=== PATIENT | male | born 1970 | race Caucasian/White ===

== ENCOUNTER 2016-07-05 17:34 | Emergency (ER) | payer SELFPAY ==
[2016-07-05 18:08] VITALS: BP 140/82
--- NOTE | 2016-07-05 18:10 | ER Document Report ---
ED Medical Screen (RME) - General Stated Complaint: BACK PAIN Notes: Patient states he injured his lower back about 2 weeks ago working on a truck. Seen by his primary care physician and treated as a muscle strain. Pt is still having sharp pains in back. Pain is more to the lower right side, but does not radiate down legs. Patient denies bowel or bladder dysfunction. States he does have a history of constipation because he is on hydrocodone. Has had back injuries in the past. I have greeted and performed a rapid initial assessment of this patient. A comprehensive ED assessment and evaluation of the patient, analysis of test results and completion of the medical decision making process will be conducted by additional ED providers. TRAVEL OUTSIDE OF THE [place] IN LAST 30 DAYS: No - Related Data Allergies/Adverse Reactions: No Known Allergies Allergy (Unverified 07/05/16 18:07) Past Medical History - Past Medical History Cardiac Medical History: Reports: Hx Atrial Fibrillation, Hx Hypertension Past Surgical History: Reports: Hx Appendectomy, Hx Bowel Surgery - partial removal large intestine, Hx Cardiac Surgery - open heart for "hole in heart" Physical Exam - Extremities Notes: Pain reproduced with leg raises. Left more than right.
[2016-07-05 19:05] LABS: APPEARANCE,URINE CLEAR; BILIRUBIN,URINE NEGATIVE (NEGATIVE); GLUCOSE, URINE NEGATIVE (NEGATIVE); KETONES,URINE NEGATIVE (NEGATIVE); LEUKOCYTE ESTERASE,URINE NEGATIVE (NEGATIVE); NITRITE,URINE NEGATIVE (NEGATIVE); PROTEIN,URINE NEGATIVE (NEGATIVE); URINE SPECIFIC GRAVITY 1.005; UROBILINOGEN,URINE NEGATIVE mg/dL (<2.0)
== END 2016-07-05 21:30 | disposition left against medical advice (07) ==
LOC: ER 17:34
DX: M54.9 Dorsalgia, unspecified (principal); K59.00 Constipation, unspecified; I48.91 Unspecified atrial fibrillation; I10 Essential (primary) hypertension
CPT/HCPCS: 72110; 81001; 99281

== ENCOUNTER 2016-10-14 12:07 | Emergency (ER) | payer BC ==
--- NOTE | 2016-10-14 12:59 | ER Document Report ---
ED GI/ - General Chief Complaint: Abdominal Pain Stated Complaint: ABDOMINAL PAIN Time Seen by Provider: 10/14/16 12:50 Notes: Patient is a 46-year-old male who presents with 6 weeks of intermittent abdominal cramping and increased loose stools. He was treated for H pylori 5 weeks ago and this cleared. He was started on medications for IBS, but he said this was not helping. He went to his GI appointment today, but the office was closed. He denies nausea, vomiting, blood in stool, chest pain, shortness of breath, fevers, recent travel, recent camping or headache. TRAVEL OUTSIDE OF THE [place] IN LAST 30 DAYS: No - Related Data Allergies/Adverse Reactions: No Known Allergies Allergy (Verified 10/14/16 12:10) Past Medical History - General Information source: Patient - Social History Smoking Status: Current Every Day Smoker Family History: Reviewed & Not Pertinent Patient has suicidal ideation: No Patient has homicidal ideation: No - Past Medical History Cardiac Medical History: Reports: Hx Atrial Fibrillation, Hx Hypertension Renal/ Medical History: Denies: Hx Peritoneal Dialysis Past Surgical History: Reports: Hx Appendectomy, Hx Bowel Surgery - partial removal large intestine, Hx Cardiac Surgery - open heart for "hole in heart" Review of Systems - Review of Systems Notes: REVIEW OF SYSTEMS: CONSTITUTIONAL: -fevers, -chills EENT: -eye pain, -difficulty swallowing, -nasal congestion CARDIOVASCULAR:-chest pain, -syncope. RESPIRATORY: -cough, -SOB GASTROINTESTINAL: +abdominal cramping, - nausea, -vomiting, +diarrhea GENITOURINARY: -dysuria, -hematuria MUSCULOSKELETAL: -back pain, -neck pain SKIN: -rash or skin lesions. HEMATOLOGIC: -easy bruising or bleeding. LYMPHATIC: -swollen, enlarged glands. NEUROLOGICAL: -altered mental status or loss of consciousness, -headache, - neurologic symptoms PSYCHIATRIC: -anxiety, -depression. ALL OTHER SYSTEMS REVIEWED AND NEGATIVE. Physical Exam - Vital signs Vitals: Temp Pulse Resp BP Pulse Ox 98.4 F 106 H 20 145/83 H 97 10/14/16 12:10 10/14/16 12:10 10/14/16 12:10 10/14/16 12:10 10/14/16 12:10 - Notes Notes: PHYSICAL EXAMINATION: GENERAL: Well-appearing, well-nourished and in no acute distress. HEAD: Atraumatic, normocephalic. EYES: Pupils equal round and reactive to light, extraocular movements intact, sclera anicteric, conjunctiva are normal. ENT: nares patent, oropharynx clear without exudates. Moist mucous membranes. NECK: Normal range of motion, supple without lymphadenopathy LUNGS: Breath sounds clear to auscultation bilaterally and equal. No wheezes rales or rhonchi. HEART: Mild tachycardia ABDOMEN: Soft, nontender, normoactive bowel sounds. No guarding, no rebound. No masses appreciated. EXTREMITIES: Normal range of motion, no pitting or edema. No cyanosis. NEUROLOGICAL: Cranial nerves grossly intact. Normal speech, normal gait. Normal sensory and motor exams. PSYCH: Anxious SKIN: Warm, Dry, normal turgor, no rashes or lesions noted. Course - Re-evaluation Re-evalutation: Patient's abdomen is soft and completely nontender. Patient unable to provide stool sample while in the emergency room. Labs are unremarkable other than a slightly decreased bicarb, most likely from the diarrhea. Also with mild tachycardia, but he says this is from his anxiety. No abdominal tenderness. Instructed him to call GI for another appointment to reschedule. Told him to continue to stay hydrated. Given return precautions and he understands. - Vital Signs Vital signs: Temp Pulse Resp BP Pulse Ox 98.4 F 106 H 20 145/83 H 97 10/14/16 12:10 10/14/16 12:10 10/14/16 12:10 10/14/16 12:10 10/14/16 12:10 - Laboratory Result Diagrams: 10/14/16 13:06 10/14/16 13:06 Laboratory results interpreted by me: 10/14/16 10/14/16 13:06 13:06 RBC 4.00 L MCV 104 H MCH 35.2 H RDW 14.8 H Carbon Dioxide 21 L Glucose 114 H AST 80 H ALT 75 H Discharge - Discharge Clinical Impression: Abdominal cramping, Loose stools Condition: Stable Disposition: HOME, SELF-CARE Additional Instructions: DIARRHEA, NON-SPECIFIC: Diarrhea means frequent, watery stools. There are many causes. Any problem that keeps the intestinal tract from absorbing water from the stool can lead to diarrhea. A sudden new diarrhea problem is usually caused by a virus, food sensitivity, toxic bacteria, or drugs. In this case, we expect the problem to go away soon. Testing is done only if you seem seriously ill from the diarrhea. If you have chronic diarrhea, or diarrhea that keeps coming back, we need to find out why. Chronic diarrhea can be due to inflammation of the bowels such as Crohn's disease or ulcerative colitis, food sensitivity such as intolerance to lactose or wheat protein, irritable bowel syndrome, and other problems. If your diarrhea is a significant problem but it's not clear why you have it, we' ll refer you to a specialist for further testing. During an episode of diarrhea, drink small amounts (two to six ounces) of clear liquids (soft drinks, sport drinks, herb teas, broth, etc). Take fluids frequently to prevent dehydration. It's usually not a problem to take mild anti- diarrhea medication such as Kaopectate or Pepto-Bismol. As the diarrhea eases, advance to small amounts of bland food (mashed potato, toast) for 24 hours. Call the physician if blood appears in your vomit or stool, if vomiting lasts longer than 24 hours, if the abdominal pain worsens or becomes localized to one area, if you develop high fever, or if you become lightheaded and weak. PRESCRIBED ANTIDIARRHEAL MEDICATION: Your doctor has prescribed antidiarrhea medication for you. While the usual treatment for diarrhea is a clear liquid diet to rest the bowels, an antidiarrheal medicine may allow you to be more active and comfortable while you recover. This medication can make you drowsy. Do not drive or operate machinery while under its influence. Do not combine with alcohol. Prescription antidiarrhea medicine can cause dry mouth. Occasionally, it can make you unable to pass your urine. Do not exceed the prescribed dosage. Severe abdominal pains, lightheadedness, bloody stool, or fever indicate that your disease is worsening. If these occur, stop the medication and see your doctor at once. FOLLOW-UP CARE: If you have been referred to a physician for follow-up care, call the physician s office for an appointment as you were instructed or within the next two days. If you experience worsening or a significant change in your symptoms, notify the physician immediately or return to the Emergency Department at any time for re-evaluation. Forms: Return to Work Referrals: DOMINIQUE LUQUE MD [ACTIVE STAFF] - Follow up as needed
[2016-10-14 13:16] LABS: ABSOLUTE LYMPHOCYTES (AUTO) 2.3 10^3/uL (0.5-4.7); ABSOLUTE MONOCYTES (AUTO) 0.7 10^3/uL (0.1-1.4); ABSOLUTE NEUT (AUTO) 3.3 10^3/uL (1.7-8.2); BASOPHILS % (AUTO) 0.5 % (0-2); EOSINOPHILS % (AUTO) 0.3 % (0-6); HEMATOCRIT 41.6 % (37.9-51.0); HEMOGLOBIN 14.1 g/dL (13.5-17.0); HGB HCT DIFFERENCE 0.7; MEAN CORPUSCULAR HEMOGLOBIN 35.2 pg (27.0-33.4); MEAN CORPUSCULAR HGB CONC 33.8 g/dL (32.0-36.0); MEAN CORPUSCULAR VOLUME 104 fl (80-97); MONOCYTES % (AUTO) 11.1 % (3-13); RED CELL DISTRIBUTION WIDTH 14.8 % (11.5-14.0); SEGMENTED NEUTROPHILS % (AUTO) 52.1 % (42-78); WHITE BLOOD COUNT 6.4 10^3/uL (4.0-10.5)
[2016-10-14 13:32] LABS: ALANINE AMINOTRANSFERASE 75 U/L (21-72); ALBUMIN 3.9 g/dL (3.5-5.0); ALKALINE PHOSPHATASE 117 U/L (38-126); ANION GAP 13 (5-19); ASPARTATE AMINO TRANSFERASE 80 U/L (17-59); BILIRUBIN,DIRECT 0.4 mg/dL (0.0-0.4); BILIRUBIN,TOTAL 0.4 mg/dL (0.2-1.3); BLOOD UREA NITROGEN 8 mg/dL (7-20); CALCIUM 8.5 mg/dL (8.4-10.2); CARBON DIOXIDE 21 mmol/L (22-30); CHLORIDE 104 mmol/L (98-107); CREATININE RESULT 0.84 mg/dL (0.52-1.25); GLUCOSE 114 mg/dL (75-110); POTASSIUM 3.8 mmol/L (3.6-5.0); SODIUM 138.2 mmol/L (137-145)
[2016-10-14 13:48] LABS: LIPASE 271.5 U/L (23-300)
[2016-10-14 14:28] VITALS: BP 120/83
== END 2016-10-14 14:30 | disposition home or self-care (01) ==
LOC: ER 12:07
DX: R10.9 Unspecified abdominal pain (principal); R19.7 Diarrhea, unspecified; F17.200 Nicotine dependence, unspecified, uncomplicated; I48.91 Unspecified atrial fibrillation; I10 Essential (primary) hypertension
CPT/HCPCS: 36415; 80053; 83690; 85025; 99284

== ENCOUNTER 2017-07-09 17:24 | Emergency (ER) | payer BC ==
[2017-07-09] MEDS ORDERED: NORMAL SALINE 1000 ML 1,000 ML IV ONE ×2 (18:10→20:26)
[2017-07-09] MEDS ORDERED: LORAZEPAM INJ 2 MG/1 ML VIAL IV ONE (18:10)
--- NOTE | 2017-07-09 18:11 | ER Document Report ---
ED Medical Screen (RME) - General Chief Complaint: Alcohol Withdrawl Stated Complaint: ETOH USE Time Seen by Provider: 07/09/17 18:09 Mode of Arrival: Ambulatory Information source: Patient Notes: Patient states that he normally drinks a sixpack of beer per day. He denies drugs and he also denies hard liquor usage. He states he does smoke cigarettes. He states over the last several days has been trying to stop drinking alcohol. He states he had a seizure yesterday. He states he is feeling very depressed and did not want to come to the hospital. He states due to the urging of family he did come today. He states he did drink this morning 1-1/2 beers. He states he has been feeling very depressed and suicidal but does not have a plan. He denies any hallucinations. TRAVEL OUTSIDE OF THE [place] IN LAST 30 DAYS: No - Related Data Allergies/Adverse Reactions: No Known Allergies Allergy (Verified 07/09/17 17:58) Past Medical History - Social History Frequency of alcohol use: Heavy Drug Abuse: None - Past Medical History Cardiac Medical History: Reports: Hx Atrial Fibrillation, Hx Hypertension Renal/ Medical History: Denies: Hx Peritoneal Dialysis Past Surgical History: Reports: Hx Appendectomy, Hx Bowel Surgery - partial removal large intestine, Hx Cardiac Surgery - open heart for "hole in heart" - Immunizations Hx Diphtheria, Pertussis, Tetanus Vaccination: Yes Physical Exam - Vital signs Vitals: Temp Pulse Resp BP Pulse Ox 98.6 F 115 H 14 138/82 H 96 07/09/17 17:41 07/09/17 17:41 07/09/17 17:41 07/09/17 17:41 07/09/17 17:41 Course - Vital Signs Vital signs: Temp Pulse Resp BP Pulse Ox 98.6 F 115 H 14 138/82 H 96 07/09/17 17:41 07/09/17 17:41 07/09/17 17:41 07/09/17 17:41 07/09/17 17:41 Doctor's Discharge - Discharge Referrals: URIAH GOLDEN PA [Primary Care Provider] - Follow up as needed
[2017-07-09 18:51] LABS: ABSOLUTE BASOPHILS # (AUTO) 0.1 10^3/uL (0.0-0.2); ABSOLUTE LYMPHOCYTES (AUTO) 2.7 10^3/uL (0.5-4.7); ABSOLUTE MONOCYTES (AUTO) 0.8 10^3/uL (0.1-1.4); ABSOLUTE NEUT (AUTO) 6.3 10^3/uL (1.7-8.2); BASOPHILS % (AUTO) 0.5 % (0-2); EOSINOPHILS % (AUTO) 0.2 % (0-6); HEMATOCRIT 42.4 % (37.9-51.0); HEMOGLOBIN 14.4 g/dL (13.5-17.0); LYMPHOCYTES % (AUTO) 27.2 % (13-45); MEAN CORPUSCULAR HEMOGLOBIN 36.8 pg (27.0-33.4); MEAN CORPUSCULAR VOLUME 108 fl (80-97); MONOCYTES % (AUTO) 8.2 % (3-13); PLATELET COUNT 334 10^3/uL (150-450); RED BLOOD COUNT 3.92 10^6/uL (4.35-5.55); RED CELL DISTRIBUTION WIDTH 17.5 % (11.5-14.0); SEGMENTED NEUTROPHILS % (AUTO) 63.9 % (42-78); TOTAL CELLS COUNTED % (AUTO) 100 %; WHITE BLOOD COUNT 9.9 10^3/uL (4.0-10.5)
[2017-07-09 18:54] LABS: ALANINE AMINOTRANSFERASE 66 U/L (21-72); ALBUMIN 4.3 g/dL (3.5-5.0); ALKALINE PHOSPHATASE 141 U/L (38-126); ANION GAP 13 (5-19); ASPARTATE AMINO TRANSFERASE 184 U/L (17-59); BILIRUBIN,DIRECT 0.3 mg/dL (0.0-0.4); BILIRUBIN,TOTAL 0.3 mg/dL (0.2-1.3); BLOOD UREA NITROGEN 10 mg/dL (7-20); CALCIUM 9.6 mg/dL (8.4-10.2); CARBON DIOXIDE 22 mmol/L (22-30); CHLORIDE 109 mmol/L (98-107); GLUCOSE 119 mg/dL (75-110); POTASSIUM 4.7 mmol/L (3.6-5.0); SODIUM 143.9 mmol/L (137-145); TOTAL PROTEIN 7.3 g/dL (6.3-8.2)
[2017-07-09 19:03] LABS: ALCOHOL 325 mg/dL (NONE DETECTED)
[2017-07-09 19:18] LABS: URINE AMPHETAMINES SCREEN NEGATIVE; URINE BARBITURATES SCREEN NEGATIVE; URINE BENZODIAZEPINES SCREEN NEGATIVE; URINE COCAINE SCREEN NEGATIVE; URINE MARIJUANA (THC) SCREEN NEGATIVE; URINE METHADONE SCREEN NEGATIVE; URINE PHENCYCLIDINE SCREEN NEGATIVE
[2017-07-09 19:40] LABS: APPEARANCE,URINE CLEAR; BILIRUBIN,URINE NEGATIVE (NEGATIVE); COLOR,URINE YELLOW; GLUCOSE, URINE NEGATIVE (NEGATIVE); KETONES,URINE NEGATIVE (NEGATIVE); LEUKOCYTE ESTERASE,URINE NEGATIVE (NEGATIVE); NITRITE,URINE NEGATIVE (NEGATIVE); PROTEIN,URINE NEGATIVE (NEGATIVE); URINE SPECIFIC GRAVITY 1.029; UROBILINOGEN,URINE NEGATIVE mg/dL (<2.0)
--- NOTE | 2017-07-09 21:08 | ER Document Report ---
ED General - General Mode of Arrival: Ambulatory Information source: Patient TRAVEL OUTSIDE OF THE [place] IN LAST 30 DAYS: No <ELLEN PEREZ - Last Filed: 07/09/17 23:50> <MYRIAM LALA - Last Filed: 07/10/17 09:36> <VERONICA RANDOLPH - Last Filed: 07/14/17 06:54> - General Chief Complaint: Alcohol Withdrawl Stated Complaint: ETOH USE Time Seen by Provider: 07/09/17 18:09 Notes: Patient is a 47 year old male with a history of alcohol abuse and Afib presents to the emergency department complaining of depression and suicidal ideation. Patient states that he had approximately 1-1/2 beers today and is attempting to stop drinking alcohol at the urgency of his family. Patient states approximately 1 month ago he had a seizure due to alcohol withdrawals and is concerned of withdrawal symptoms while here in the hospital. At bedside patient denies any suicidal ideation, suicidal plan or homicidal ideation. Patient states he was previously in Rehab in [place]. Patient currently takes Eliquis and Metoprolol. (ELLEN PEREZ) - Related Data Allergies/Adverse Reactions: No Known Allergies Allergy (Verified 07/09/17 17:58) Past Medical History - General Information source: Patient - Social History Smoking Status: Current Every Day Smoker Frequency of alcohol use: Heavy Drug Abuse: None Family History: Reviewed & Not Pertinent Patient has suicidal ideation: Yes Patient has homicidal ideation: No - Past Medical History Cardiac Medical History: Reports: Hx Atrial Fibrillation, Hx Hypertension Renal/ Medical History: Denies: Hx Peritoneal Dialysis Past Surgical History: Reports: Hx Appendectomy, Hx Bowel Surgery - partial removal large intestine, Hx Cardiac Surgery - open heart for "hole in heart" - Immunizations Hx Diphtheria, Pertussis, Tetanus Vaccination: Yes <ELLEN PEREZ - Last Filed: 07/09/17 23:50> Review of Systems - Review of Systems Constitutional: No symptoms reported EENT: No symptoms reported Cardiovascular: No symptoms reported Respiratory: No symptoms reported Gastrointestinal: No symptoms reported Genitourinary: No symptoms reported Male Genitourinary: No symptoms reported Musculoskeletal: No symptoms reported Skin: No symptoms reported Hematologic/Lymphatic: No symptoms reported Neurological/Psychological: See HPI -: Yes All other systems reviewed and negative <ELLEN PEREZ - Last Filed: 07/09/17 23:50> Physical Exam <ELLEN PEREZ - Last Filed: 07/09/17 23:50> <MYRIAM LALA - Last Filed: 07/10/17 09:36> <VERONICA RANDOLPH - Last Filed: 07/14/17 06:54> - Vital signs Vitals: Temp Pulse Resp BP Pulse Ox 98.6 F 115 H 14 138/82 H 96 07/09/17 17:41 07/09/17 17:41 07/09/17 17:41 07/09/17 17:41 07/09/17 17:41 - Notes Notes: GENERAL: Alert, interacts well, pleasant. No acute distress. HEAD: Normocephalic, atraumatic. EYES: Pupils equal, round, and reactive to light. Extraocular movements intact. ENT: Oral mucosa moist, tongue midline. NECK: Full range of motion. Supple. Trachea midline. LUNGS: Clear to auscultation bilaterally, no wheezes, rales, or rhonchi. No respiratory distress. HEART: Regular rate and rhythm. No murmurs, gallops, or rubs. ABDOMEN: Soft, non-tender. Non-distended. Bowel sounds present in all 4 quadrants. EXTREMITIES: Moves all 4 extremities spontaneously. NEUROLOGICAL: Alert and oriented x3. Normal speech. PSYCH: Normal affect, normal mood. SKIN: Warm, dry, normal turgor. No rashes or lesions noted. (ELLEN PEREZ) Course - Laboratory Result Diagrams: 07/09/17 18:26 07/09/17 18:26 <ELLEN PEREZ - Last Filed: 07/09/17 23:50> - Laboratory Result Diagrams: 07/09/17 18:26 07/09/17 18:26 <MYRIAM LALA - Last Filed: 07/10/17 09:36> - Laboratory Result Diagrams: 07/09/17 18:26 07/09/17 18:26 <VERONICA RANDOLPH - Last Filed: 07/14/17 06:54> - Re-evaluation Re-evalutation: 07/10/17 09:34 Patient was signed out to me by Dr. randolph. (MYRIAM LALA) 07/09/17 23:00 Patient requesting alcohol detoxification assistance. Will be held overnight until psychiatric services can evaluate patient. Patient alert oriented very pleasant during history and physical. (VERONICA RANDOLPH) - Vital Signs Vital signs: Temp Pulse Resp BP Pulse Ox 98.2 F 115 H 16 155/97 H 96 07/10/17 07:00 07/09/17 17:41 07/10/17 08:01 07/10/17 09:00 07/10/17 09:01 - Laboratory Laboratory results interpreted by me: 07/09/17 07/09/17 07/09/17 18:26 18:26 18:26 RBC 3.92 L MCV 108 H MCH 36.8 H RDW 17.5 H Chloride 109 H Glucose 119 H AST 184 H Alkaline Phosphatase 141 H Acetaminophen < 10 L Serum Alcohol 325 H* Discharge <ELLEN PEREZ - Last Filed: 07/09/17 23:50> <MYRIAM LALA - Last Filed: 07/10/17 09:36> <VERONICA RANDOLPH - Last Filed: 07/14/17 06:54> - Discharge Clinical Impression: Alcohol withdrawal Qualifiers: Complication of substance-induced condition: with unspecified complication Qualified Code(s): F10.239 - Alcohol dependence with withdrawal, unspecified Condition: Good Disposition: HOME, SELF-CARE Instructions: Alcohol Withdrawl (OM) Referrals: URIAH GOLDEN PA [Primary Care Provider] - Follow up as needed Scribe Attestation: 07/14/17 06:54 I personally performed the services described in the documentation, reviewed and edited the documentation which was dictated to the scribe in my presence, and it accurately records my words and actions. (VERONICA RANDOLPH) Scribe Documentation - Scribe Written by Scottibgeorgiana:: Dontae Jackman, 07/09/2017 21:09 acting as scribe for :: Saúl <ELLEN PEREZ - Last Filed: 07/09/17 23:50>
[2017-07-10] MEDS ORDERED: LORAZEPAM INJ 2 MG/1 ML VIAL IV PRN (00:06)
[2017-07-10 10:07] VITALS: BP 155/97
== END 2017-07-10 10:07 | disposition home or self-care (01) ==
LOC: ER 17:24
DX: F10.239 Alcohol dependence with withdrawal, unspecified (principal); I48.91 Unspecified atrial fibrillation; F32.9 Major depressive disorder, single episode, unspecified; F17.200 Nicotine dependence, unspecified, uncomplicated; I10 Essential (primary) hypertension
CPT/HCPCS: 96376; 99285; 96361; 96374; 36415; 80307 ×3; 85025; 80053; 81001; J2060 ×2; J7030

== ENCOUNTER 2019-01-02 14:04 | Emergency (ER) | payer SELFPAY ==
[2019-01-02] MEDS ORDERED: ASPIRIN 81 MG TABLET, CHEWABLE PO ONE (14:09)
[2019-01-02] MEDS ORDERED: ONDANSETRON 4 MG TAB.RAPDIS PO ONE (14:10)
--- NOTE | 2019-01-02 14:11 | ER Document Report ---
ED Medical Screen (RME) - General Stated Complaint: CHEST PAIN/DIFFICULTY BREATHING Time Seen by Provider: 01/02/19 14:09 Primary Care Provider: URIAH LEONARDO PA-C [Primary Care Provider] - Follow up as needed Mode of Arrival: Ambulatory Information source: Patient Notes: This 48-year-old male presents emergency department with chest pain shortness of breath. Reports history of atrial fib. Reports symptoms for the past 24 hours. Reports the pain comes and goes when it comes he feels nauseated and sweaty. Denies radiating pain. Patient does take Eliquis. Patient is very anxious. I have greeted and performed a rapid initial assessment of this patient. A comprehensive ED assessment and evaluation of the patient, analysis of test results and completion of the medical decision making process will be conducted by additional ED providers. Dictation of this chart was performed using voice recognition software; therefore, there may be some unintended grammatical errors. TRAVEL OUTSIDE OF THE [place] IN LAST 30 DAYS: No - Related Data Allergies/Adverse Reactions: No Known Allergies Allergy (Verified 07/09/17 17:58) Past Medical History - Past Medical History Cardiac Medical History: Reports: Hx Atrial Fibrillation, Hx Hypertension Renal/ Medical History: Denies: Hx Peritoneal Dialysis Past Surgical History: Reports: Hx Appendectomy, Hx Bowel Surgery - partial removal large intestine, Hx Cardiac Surgery - open heart for "hole in heart" - Immunizations Hx Diphtheria, Pertussis, Tetanus Vaccination: Yes Physical Exam - Vital signs Vitals: Temp Pulse Resp BP Pulse Ox 97.6 F 99 18 138/78 H 97 01/02/19 14:07 01/02/19 14:07 01/02/19 14:07 01/02/19 14:07 01/02/19 14:07 Course - Vital Signs Vital signs: Temp Pulse Resp BP Pulse Ox 97.6 F 99 18 138/78 H 97 01/02/19 14:07 01/02/19 14:07 01/02/19 14:07 01/02/19 14:07 01/02/19 14:07 Doctor's Discharge - Discharge Referrals: URIAH LEONARDO PA-C [Primary Care Provider] - Follow up as needed
[2019-01-02 15:09] LABS: ABSOLUTE LYMPHOCYTES (AUTO) 2.8 10^3/uL (0.5-4.7); BASOPHILS % (AUTO) 0.4 % (0-2); EOSINOPHILS % (AUTO) 0.2 % (0-6); HEMATOCRIT 45.3 % (37.9-51.0); HEMOGLOBIN 15.7 g/dL (13.5-17.0); LYMPHOCYTES % (AUTO) 28.4 % (13-45); MEAN CORPUSCULAR HGB CONC 34.6 g/dL (32.0-36.0); MEAN CORPUSCULAR VOLUME 95 fl (80-97); MONOCYTES % (AUTO) 9.8 % (3-13); PLATELET COUNT 250 10^3/uL (150-450); RED BLOOD COUNT 4.76 10^6/uL (4.35-5.55); RED CELL DISTRIBUTION WIDTH 15.8 % (11.5-14.0); SEGMENTED NEUTROPHILS % (AUTO) 61.2 % (42-78); TOTAL CELLS COUNTED % (AUTO) 100 %; WHITE BLOOD COUNT 9.8 10^3/uL (4.0-10.5)
[2019-01-02 15:33] LABS: ALBUMIN 4.1 g/dL (3.5-5.0); ALKALINE PHOSPHATASE 104 U/L (38-126); ANION GAP 14 (5-19); ASPARTATE AMINO TRANSFERASE 147 U/L (17-59); BILIRUBIN,DIRECT 0.1 mg/dL (0.0-0.4); BILIRUBIN,TOTAL 0.8 mg/dL (0.2-1.3); BLOOD UREA NITROGEN 15 mg/dL (7-20); CARBON DIOXIDE 22 mmol/L (22-30); CHLORIDE 103 mmol/L (98-107); CREATINE KINASE 83 U/L (55-170); GLUCOSE 103 mg/dL (75-110); TOTAL PROTEIN 6.8 g/dL (6.3-8.2)
[2019-01-02] MEDS ORDERED: NITROGLYCERIN 0.4 MG/TAB 25 TAB/BOTTLE SL PRN (15:40)
[2019-01-02] MEDS ORDERED: LORAZEPAM 0.5 MG TABLET PO ONE (15:40)
--- NOTE | 2019-01-02 15:43 | ER Document Report ---
ED General - General Chief Complaint: Chest Pain Stated Complaint: CHEST PAIN/DIFFICULTY BREATHING Time Seen by Provider: 01/02/19 14:09 Primary Care Provider: URIAH LEONARDO PA-C [NO LOCAL MD] - Follow up as needed Mode of Arrival: Ambulatory Notes: 48-year-old male presents emergency department complaining of sharp stabbing left-sided chest pain and a sensation of heaviness in his chest that makes him short of breath for the past few days. Patient states that it is a fairly constant sharp stabbing pain that will be there for hours and then resolve and then it will come back. It does worsen with standing and walking around. When laying down and is fairly constant and unchanging. Patient does state that he recently started drinking again a few days ago after 9 months of sobriety. Denies any history of ischemic heart disease in himself or his family. Does have a history of atrial fibrillation which is managed with Eliquis and metoprolol. TRAVEL OUTSIDE OF THE [place] IN LAST 30 DAYS: No - Related Data Allergies/Adverse Reactions: No Known Allergies Allergy (Verified 07/09/17 17:58) Past Medical History - General Information source: Patient - Social History Smoking Status: Current Every Day Smoker Frequency of alcohol use: Heavy - Drinking again daily after 9 months of sobriety. Drug Abuse: None Family History: Reviewed & Not Pertinent Patient has suicidal ideation: No Patient has homicidal ideation: No - Past Medical History Cardiac Medical History: Reports: Hx Atrial Fibrillation, Hx Hypertension Renal/ Medical History: Denies: Hx Peritoneal Dialysis Past Surgical History: Reports: Hx Appendectomy, Hx Bowel Surgery - partial removal large intestine, Hx Cardiac Surgery - open heart for "hole in heart" - Immunizations Hx Diphtheria, Pertussis, Tetanus Vaccination: Yes Review of Systems - Review of Systems Constitutional: No symptoms reported Cardiovascular: See HPI Respiratory: See HPI -: Yes All other systems reviewed and negative Physical Exam - Vital signs Vitals: Temp Pulse Resp BP Pulse Ox 97.6 F 99 18 138/78 H 97 01/02/19 14:07 01/02/19 14:07 01/02/19 14:07 01/02/19 14:07 01/02/19 14:07 Interpretation: Normal - Notes Notes: GENERAL: Alert, interacts well. No acute distress. HEAD: Normocephalic, atraumatic EYES: Pupils equal, round and reactive to light, extraocular movements intact. ENT: Oral mucosa moist, tongue midline. NECK: Full range of motion, supple, trachea midline. LUNGS: Clear to auscultation bilaterally, no wheezes, rales or rhonchi, no respiratory distress. No tenderness to palpation across the chest. HEART: Regular rate and rhythm, no murmurs, gallops, rubs. ABDOMEN: Soft, epigastric tenderness to palpation, nondistended, bowel sounds present in all 4 quadrants. EXTREMITIES: Moves all 4 extremities spontaneously, no edema, radial and dorsalis pedis pulses 2/4 bilaterally. No cyanosis. NEUROLOGICAL: Alert and oriented x3, normal speech, biceps and patellar DTRs 2+ bilaterally. PSYCH: Normal mood, normal affect. SKIN: Warm, Dry, normal turgor, no rashes or lesions noted. No lesions to chest. Course - Re-evaluation Re-evalutation: 01/02/19 20:54 CBC unremarkable, CMP unremarkable, only slightly elevated AST consistent with recent increase in drinking, lipase normal, troponin negative x2, serum alcohol was elevated 238. No obvious intoxication. Chest x-ray shows no acute process. Patient's pain is not really consistent with ischemic cardiac disease, her heart score is 3. I did discuss with the patient that this sharp stabbing pain associated with some epigastric abdominal pain may be more related to gastritis particularly with the fact that he is recently started drinking again. Recommend starting antacids, quitting drinking and following up with cardiology as an outpatient for possible stress test anyway. Patient is agreeable to this plan. - Vital Signs Vital signs: Temp Pulse Resp BP Pulse Ox 98.5 F 99 12 126/85 H 98 01/02/19 18:01 01/02/19 14:07 01/02/19 18:01 01/02/19 18:01 01/02/19 18:01 - Laboratory Result Diagrams: 01/02/19 14:56 01/02/19 14:56 Laboratory results interpreted by me: 01/02/19 01/02/19 14:56 14:56 RDW 15.8 H AST 147 H - EKG Interpretation by Me Additional EKG results interpreted by me: 01/02/19 15:43 EKG shows sinus rhythm rate 97, slight right axis deviation, normal intervals, no ST segment elevations or depressions, there are T wave inversions noted in aVL, V2 and V3, no ST segment elevations or depressions per my interpretation. Discharge - Discharge Clinical Impression: Left-sided chest pain, Epigastric abdominal pain Condition: Stable Disposition: HOME, SELF-CARE Additional Instructions: Chest Pain of Unclear Cause The exact cause of your chest pain isn't clear. Fortunately, there is no evidence of a dangerous medical condition. Further testing may be required to find the source of the pain. Most often, we find that this pain is coming from the chest wall -- the muscles or rib joints in the chest. But chest pain can come from the lung and lung lining, the esophagus, the heart valves or heart lining, and even the stomach or gallbladder. Rest. Eat lightly until the pain is gone. We may prescribe medicine for pain and inflammation. You should call the physician immediately if the pain radiates to the shoulder, jaw or arms; if you start to run a fever or develop a cough; or if you develop shortness of breath, or other new or alarming symptoms. I think this may be coming from irritation of your stomach. This is called gastritis. Please take the antacid of your choice [id number] such as Pepcid or Zantac every day for the next 2 weeks. 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 I have included Dr. Leon's discharge information. He may wish to perform a stress test to make absolutely certain this is not coming from your heart. Referrals: URIAH LEONARDO PA-C [NO LOCAL MD] - Follow up as needed ROSANNE LEON MD [ACTIVE STAFF] - Follow up as needed
[2019-01-02 15:44] LABS: CREATINE KINASE MB 0.94 ng/mL (<4.55)
[2019-01-02 15:46] LABS: TROPONIN I < 0.012 ng/mL
--- NOTE | 2019-01-02 16:09 | RADIOLOGY REPORT (SQ) ---
EXAM DESCRIPTION: CHEST SINGLE VIEW COMPLETED DATE/TIME: 01/02/2019 3:57 pm REASON FOR STUDY: cp COMPARISON: 04/05/2008 TECHNIQUE: Single frontal radiographic view of the chest acquired. NUMBER OF VIEWS: One view. LIMITATIONS: None. FINDINGS: LUNGS AND PLEURA: No pneumothorax. No consolidation or pleural effusion. MEDIASTINUM AND HILAR STRUCTURES: Stable. HEART AND VASCULAR STRUCTURES: Stable. BONES: No acute findings. HARDWARE: Sternotomy. OTHER: No other significant finding. IMPRESSION: NO ACUTE FINDINGS. TECHNICAL DOCUMENTATION: JOB ID: [id number] [place]-72 2010 [employer]- All Rights Reserved Reading location - IP/workstation name: [email or web address]
[2019-01-02 21:19] VITALS: BP 121/61
--- NOTE | 2019-01-02 22:15 | EKG REPORT ---
SEVERITY:- ABNORMAL ECG - SINUS RHYTHM LEFT ATRIAL ABNORMALITY BORDERLINE RIGHT AXIS DEVIATION BORDERLINE INFERIOR Q WAVES NONSPECIFIC T ABNORMALITIES, ANTERIOR LEADS : Confirmed by: Rony Magana MD 02-Jan-2019 22:14:05
== END 2019-01-02 21:19 | disposition home or self-care (01) ==
LOC: ER 14:04
DX: R07.9 Chest pain, unspecified (principal); R06.02 Shortness of breath; R10.13 Epigastric pain; R10.816 Epigastric abdominal tenderness; R74.0 Nonspecific elevation of levels of transaminase and lactic acid dehydrogenase [LDH]; F17.200 Nicotine dependence, unspecified, uncomplicated; I10 Essential (primary) hypertension; I48.91 Unspecified atrial fibrillation; Z79.02 Long term (current) use of antithrombotics/antiplatelets; Z79.899 Other long term (current) drug therapy
CPT/HCPCS: 93005; 36415; 82553; 80307; 82550; 83690; 85025; 80053; 84484; 71045; 93010; S0119; 99285

== ENCOUNTER 2019-05-09 11:39 | Emergency (ER) | payer OTHER, BC ==
[2019-05-09 12:32] VITALS: BP 154/85
[2019-05-09] MEDS ORDERED: LIDOCAINE 5% (700 MG) TRANSDERMAL ADH..PATCH TP ONE (13:22)
--- NOTE | 2019-05-09 13:25 | ER Document Report ---
HPI - HPI Patient complains to provider of: LOW BACK PAIN Time Seen by Provider: 05/09/19 13:14 Onset: Other Quality of pain: Achy Pain Level: 5 Context: 48-year-old male presents emergency department with complaints of right-sided low back pain for the past month. 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 He reports he has been to 2 other providers that of treated with ibuprofen muscle relaxers but he still hurting. He also reports he still working and lifting lumber. He reports he cannot take time off. He reports he is eating drinking voiding bowel movement is normal. He denies urinary bowel incontinence or retention. Denies numbness or tingling. Denies history of IV drug use or steroid use. Denies other symptoms such as pain with void fever vomiting diarrhea. Associated Symptoms: None Exacerbated by: Movement Relieved by: Denies Similar symptoms previously: Yes Recently seen / treated by doctor: Yes Past Medical History - General Information source: Patient - Social History Smoking Status: Current Every Day Smoker Chew tobacco use (# tins/day): No Frequency of alcohol use: None Drug Abuse: None Occupation: [employer] Family History: Reviewed & Not Pertinent Patient has suicidal ideation: No Patient has homicidal ideation: No - Past Medical History Cardiac Medical History: Reports: Hx Atrial Fibrillation, Hx Hypertension Renal/ Medical History: Denies: Hx Peritoneal Dialysis Past Surgical History: Reports: Hx Appendectomy, Hx Bowel Surgery - partial removal large intestine, Hx Cardiac Surgery - open heart for "hole in heart" - Immunizations Hx Diphtheria, Pertussis, Tetanus Vaccination: Yes Vertical Provider Document - CONSTITUTIONAL Agree With Documented VS: Yes Exam Limitations: No Limitations General Appearance: WD/WN, No Apparent Distress - INFECTION CONTROL TRAVEL OUTSIDE OF THE [place] IN LAST 30 DAYS: No - HEENT HEENT: Atraumatic, Normocephalic - NECK Neck: Normal Inspection, Supple. negative: Lymphadenopathy-Left, Lymphadenopathy-Right - RESPIRATORY Respiratory: Breath Sounds Normal, No Respiratory Distress - CARDIOVASCULAR Cardiovascular: Regular Rate - GI/ABDOMEN Gastrointestinal: Abdomen Soft, Abdomen Non-Tender - BACK Back: Normal Inspection - No obvious deformity no vertebral tenderness patient c omplains of low right-sided back pain. No erythema no swelling no warmth good distal movement sensation - MUSCULOSKELETAL/EXTREMETIES Musculoskeletal/Extremeties: MAEW, FROM, Non-Tender - NEURO Level of Consciousness: Awake, Alert, Appropriate Motor/Sensory: No Motor Deficit - DERM Integumentary: Warm, Dry Adult Front & Back Diagram: 1 - Patient reports pain. Course - Re-evaluation Re-evalutation: 05/09/19 13:31 48-year-old male presents with complaints of right low back pain. Patient is ambulating well problems. Denies trauma. Reports he lifted some lumber at work and hurt himself. He is still working because he cannot take time off. He has been to 2 providers who have treated with muscle relaxers ibuprofen still hurting. We discussed the importance of avoiding heavy lifting and use in his legs to lift items. We also discussed red flags of back pain. Patient was treated with a Lidoderm patch to help fully relieve some of the pain and prescribed muscle relaxers. Instructed to follow-up with his primary care provider for an MRI if indicated. Low suspicion for any meningitis, fracture, expanding/ruptured AAA, cauda equina syndrome, epidural mass lesion/abscess, herniated disc causing severe spinal stenosis, or other systemic infection at this time. Patient is aware that this condition can change from initial presentation and that she needs monitor symptoms closely for any acute changes. Patient verbalized understanding to all instructions. - Vital Signs Vital signs: Temp Pulse Resp BP Pulse Ox 97.4 F 87 16 154/85 H 98 05/09/19 12:31 05/09/19 12:31 05/09/19 12:31 05/09/19 12:31 05/09/19 12:31 Discharge - Discharge Clinical Impression: right side low back pain Condition: Stable Disposition: HOME, SELF-CARE Instructions: Use of Iuxm-Vhr-[id number] Ibuprofen ([facility]), Ice Packs ([facility]), Muscle Relaxers ([facility]), Muscle Strain ([facility]) Additional Instructions: *You have been evaluated for low back pain *Take medication as prescribed *Apply Lidoderm patch daily Take ibuprofen as indicated *Rest/Ice as indicated. Do not lift with your back use your legs as discussed *Follow up with your primary care provider for recheck within 1 week *Return to ED for worsening condition, changes, needs Monitor your blood pressure. Your blood pressure was elevated today. This may be because you were anxious, in pain or because you need medication. It is important to follow up with your primary care provider for full evaluation. Prescriptions: Cyclobenzaprine HCl [Flexeril 10 mg Tablet] 10 mg PO TID #15 tab Lidocaine [Lidoderm 5% (700 mg) Transdermal Patch] 1 patch TP DAILY #30 adh..pa tch Forms: Elevated Blood Pressure Referrals: JENA MCCALL, FLOAT NURSE-C [Primary Care Provider] - Follow up in 1 week
== END 2019-05-09 13:30 | disposition home or self-care (01) ==
LOC: ER 11:39
DX: M54.5 Low back pain (principal); X50.0XXA Overexertion from strenuous movement or load, initial encounter; Y92.512 Supermarket, store or market as the place of occurrence of the external cause; Y99.0 Civilian activity done for income or pay; F17.200 Nicotine dependence, unspecified, uncomplicated; I10 Essential (primary) hypertension
CPT/HCPCS: 99283

== ENCOUNTER 2019-05-19 13:49 | Emergency (ER) | payer BC, OTHER ==
--- NOTE | 2019-05-19 14:53 | ER Document Report ---
ED Medical Screen (RME) - General Chief Complaint: Fall Stated Complaint: ETOH/FALL/BACK PAIN Time Seen by Provider: 05/19/19 14:49 Primary Care Provider: JENA MCCALL FNP-C [Primary Care Provider] - Follow up as needed Notes: HPI: History is obtained from the patient and from EMS. Patient is a poor historian. Patient is intoxicated and slurring his words. 49-year-old male brought to the emergency department for evaluation of multiple falls at home today. Patient is on Eliquis. Patient does admit to drinking today. Family members called EMS because of the falls. He has a history of low back injury in April of this year. He denies hitting his head today. I have greeted and performed a rapid initial assessment of this patient. A comprehensive ED assessment and evaluation of the patient, analysis of test results and completion of the medical decision making process will be conducted by additional ED providers PHYSICAL EXAMINATION: GENERAL: Well-appearing, well-nourished and in no acute distress. Patient is intoxicated clinically HEAD: Atraumatic, normocephalic. EYES: sclera anicteric, conjunctiva are normal. ENT: Moist mucous membranes. NECK: Normal range of motion LUNGS: Normal work of breathing HEART: 2+ radial pulses bilaterally ABD: limited by positioning for exam in triage. EXTREMITIES: no pitting or edema. No cyanosis. BACK: Mild tenderness to the lumbar back on palpation NEUROLOGICAL: Patient with difficulty standing, difficulty with balance. Patient is urinated on himself PSYCH: Intoxicated SKIN: Warm, Dry, normal turgor, no rashes or lesions noted. TRAVEL OUTSIDE OF THE U.S. IN LAST 30 DAYS: No - Related Data Allergies/Adverse Reactions: No Known Allergies Allergy (Verified 05/19/19 14:36) Past Medical History - Social History Chew tobacco use (# tins/day): No Frequency of alcohol use: Heavy Drug Abuse: None - Past Medical History Cardiac Medical History: Reports: Hx Atrial Fibrillation, Hx Hypertension Renal/ Medical History: Denies: Hx Peritoneal Dialysis Past Surgical History: Reports: Hx Appendectomy, Hx Bowel Surgery - partial removal large intestine, Hx Cardiac Surgery - open heart for "hole in heart" - Immunizations Hx Diphtheria, Pertussis, Tetanus Vaccination: Yes Doctor's Discharge - Discharge Referrals: CAL,JENA B, HYDROLOGIST-C [Primary Care Provider] - Follow up as needed
--- NOTE | 2019-05-19 15:34 | RADIOLOGY REPORT (SQ) ---
EXAM DESCRIPTION: CT HEAD WITHOUT COMPLETED DATE/TIME: 05/19/2019 3:21 pm REASON FOR STUDY: fall on blood thinner COMPARISON: None. TECHNIQUE: Axial images acquired through the brain without intravenous contrast. Images reviewed wi th bone, brain and subdural windows. Additional sagittal and coronal reconstructions were generated. Images stored on PACS. All CT scanners at this facility use dose modulation, iterative reconstruction, and/or weight based d osing when appropriate to reduce radiation dose to as low as reasonably achievable (ALARA). [facility]: Dose Right [facility]: CareDose [facility]: Dose Right [facility]: Teradose 4D [facility]: [employer] RADIATION DOSE: CT Rad equipment meets quality standard of care and radiation dose reduction techniq ues were employed. CTDIvol: 53.2 mGy. DLP: 1017 mGy-cm. LIMITATIONS: None. FINDINGS: There is no acute intracranial hemorrhage, vascular territorial infarct, extra-axial fluid collection, mass effect or midline shift. There is no effacement of cerebral sulci or basal subarac hnoid cisterns. The hutson-white matter differentiation is preserved. The caliber of the ventricles i s concordant with the degree of sulcation. There is a chronic fracture deformity of the left nasal bone. The mucosal lining of the left maxilla ry sinus is thickened. There is no paranasal sinus air-fluid level. The orbits and globes are intac t. There is no fracture of the calvarium. IMPRESSION: No acute intracranial abnormality. EVIDENCE OF ACUTE STROKE: NO. COMMENT: Quality ID # [id number]: Final reports with documentation of one or more dose reduction techniques (e.g., Automated exposure control, adjustment of the mA and/or kV according to patient size, use of iterative reconstruction technique) TECHNICAL DOCUMENTATION: JOB ID: [id number] [employer]- All Rights Reserved Reading location - IP/workstation name: [email or web address]
--- NOTE | 2019-05-19 16:02 | RADIOLOGY REPORT (SQ) ---
EXAM DESCRIPTION: L SPINE WHOLE COMPLETED DATE/TIME: 05/19/2019 3:34 pm REASON FOR STUDY: fall COMPARISON: None. NUMBER OF VIEWS: Five views including obliques. TECHNIQUE: AP, lateral, oblique, and sacral radiographic images acquired of the lumbar spine. LIMITATIONS: None. FINDINGS: MINERALIZATION: Normal. SEGMENTATION: There are 5 lumbar-type vertebral bodies. There is no transitional anatomy at the lumb osacral junction. ALIGNMENT: Normal. VERTEBRAE: The lumbar vertebral body heights are preserved. There is no fracture. DISCS: The L3-L4, L4-5 and L5-S1 intervertebral spaces are narrowed and there is associated endplate osteophyte formation. POSTERIOR ELEMENTS: Intact. There is no pars interarticularis defect. HARDWARE: None in the spine. PARASPINAL SOFT TISSUES: Normal. PELVIS: Intact. OTHER: Surgical clips that project within the right lower quadrant. IMPRESSION: No fracture or malalignment of the lumbar spine. TECHNICAL DOCUMENTATION: JOB ID: [id number] [employer]- All Rights Reserved Reading location - IP/workstation name: [email or web address]
[2019-05-19] MEDS ORDERED: NORMAL SALINE 1000 ML 1,000 ML IV ONE (18:20)
[2019-05-19] MEDS ORDERED: THIAMINE HCL 100 MG, FOLIC ACID 1 MG in NORMAL SALINE 250 ML IV ONE (18:20)
--- NOTE | 2019-05-19 18:21 | ER Document Report ---
ED Substance Abuse / Acc. OD - General Chief Complaint: Fall Stated Complaint: ETOH/FALL/BACK PAIN Time Seen by Provider: 05/19/19 17:49 Primary Care Provider: JENA CMCALL FNP-C [Primary Care Provider] - Follow up as needed Mode of Arrival: Medic Information source: Patient, Friend Cannot obtain history due to: Intoxicated Notes: Patient presents after witnessed fall x5 episodes today. Patient does have a history of alcoholism and has been drinking heavily since yesterday. Patient lives with friends who are requesting that patient get treatment for his alcoholism. Patient's friend states that they have spoke with the [facility] who s tates that they do have a bed for him although he needs to be medically cleared. Patient does have a history of chronic low back pain and complains of a flareup of the back pain prior to his most recent falls. Patient does take Eliquis for A. fib. There was no witnessed loss of consciousness after the falls, no nausea or vomiting. Patient complains only of low back pain. TRAVEL OUTSIDE OF THE U.S[place] IN LAST 30 DAYS: No - HPI Patient complains to provider of: Alcohol abuse Onset: Yesterday Onset/Duration: Persistent Quality of pain: Achy, Sharp Situational problems related to: Lost job, Other - Ex- Associated Symptoms: denies: Diarrhea, Lightheaded, Headache, Fainting Similar symptoms previously: Yes Recently seen / treated by doctor: No - Related Data Allergies/Adverse Reactions: No Known Allergies Allergy (Verified 05/19/19 14:36) Past Medical History - General Information source: Patient, Friend - Social History Smoking Status: Current Every Day Smoker Chew tobacco use (# tins/day): No Frequency of alcohol use: Heavy Drug Abuse: None Occupation: None Lives with: Friend Family History: Reviewed & Not Pertinent Patient has suicidal ideation: No Patient has homicidal ideation: No - Past Medical History Cardiac Medical History: Reports: Hx Atrial Fibrillation, Hx Hypertension Renal/ Medical History: Denies: Hx Peritoneal Dialysis Musculoskeletal Medical History: Reports Hx Arthritis - Low back pain Past Surgical History: Reports: Hx Appendectomy, Hx Bowel Surgery - partial removal large intestine, Hx Cardiac Surgery - open heart for "hole in heart" - Immunizations Hx Diphtheria, Pertussis, Tetanus Vaccination: Yes Review of Systems - Review of Systems Constitutional: No symptoms reported EENT: No symptoms reported Cardiovascular: No symptoms reported. denies: Chest pain Respiratory: No symptoms reported. denies: Cough, Short of breath Gastrointestinal: No symptoms reported. denies: Abdominal pain, Nausea, Vomiting Genitourinary: No symptoms reported Male Genitourinary: No symptoms reported Musculoskeletal: Back pain Skin: No symptoms reported Hematologic/Lymphatic: No symptoms reported Neurological/Psychological: No symptoms reported. denies: Lost consciousness, Headaches Physical Exam - Vital signs Vitals: Temp Pulse Resp BP Pulse Ox 97.4 F 98 18 102/66 95 05/19/19 14:34 05/19/19 14:34 05/19/19 14:34 05/19/19 14:34 05/19/19 14:34 - General Notes: Resting with eyes closed, responds easily to voice and tactile stimulation - Respiratory Respiratory status: No respiratory distress Chest status: Nontender Breath sounds: Normal. No: Rales, Rhonchi, Stridor, Wheezing Chest palpation: Normal - Cardiovascular Rhythm: Regular Heart sounds: S1 appreciated, S2 appreciated - Abdominal Inspection: Normal Distension: No distension Bowel sounds: Normal Tenderness: Nontender - Back Back: Vertebra tenderness - Lower lumbar tenderness - Extremities General upper extremity: Normal inspection, Normal strength General lower extremity: Normal inspection, Normal strength - Neurological [place] Coma Scale Eye Opening: To Voice Leonie Coma Scale Verbal: Oriented [place] Coma Scale Motor: Obeys Commands [place] Coma Scale Total: 14 - Skin Skin Temperature: Warm Skin Moisture: Dry Skin Color: Normal Course - Re-evaluation Re-evalutation: 05/19/19 18:58 EKG obtained for medical clearance. Consulted with Dr. Young regarding patient's EKG. Recommends obtaining troponin at this time despite patient not having any complaints of chest pain. 05/19/19 22:35 pt sleeping, arouses easily to voice. Pt planes of low back pain at this time. We are still awaiting a urinalysis results. 05/20/19 00:19 Spoke with staff at [facility] who states that they are cut off for the alcohol level has to be under 200 which patient's alcohol level is below that at this time. [facility] have advised sending patient over for evaluation. Spoke with Dr. polo who advises having family member drive patient to the facility after discharge. Spoke with the patient's family member who is agreeable to come pick patient up and take him to [facility] for treatment. 05/20/19 00:53 Patient continues without any chest pain symptoms at this time. Low clinical suspicion for ACS given clinical history, exam and negative initial troponin. HEART score less than or equal to 3. The patient presents with low back pain without signs of spinal cord compression, cauda equina syndrome, infection, aneurysm, or other serious etiology. The patient is neurologically intact. Given the extremely low risk of these diagnoses further testing and evaluation for these possibilities does not appear to be indicated at this time. Patient has been instructed to return if the symptoms worsen or change in any way.Patient's laboratory work-up reviewed, patient appears medically stable for discharge at this time. Patient does plan to go to the [facility] for treatment for alcoholism. Patient is awaiting his family member to drive him to their facility at this time. - Vital Signs Vital signs: Temp Pulse Resp BP Pulse Ox 98.4 F 82 20 134/86 H 92 05/19/19 23:08 05/19/19 23:08 05/19/19 23:08 05/19/19 23:08 05/19/19 23:08 - Laboratory Result Diagrams: 05/19/19 18:39 05/19/19 18:39 Laboratory results interpreted by me: 05/19/19 05/19/19 18:39 18:39 RBC 3.63 L Hgb 13.1 L MCV 105 H MCH 36.1 H RDW 18.4 H Lymph % (Auto) 51.2 H Seg Neutrophils % 34.3 L Salicylates < 1.0 L Acetaminophen < 10 L Labs- Entire Visit 05/19/19 05/19/19 05/19/19 18:39 18:39 18:39 WBC 6.6 RBC 3.63 L Hgb 13.1 L Hct 38.0 MCV 105 H MCH 36.1 H MCHC 34.5 RDW 18.4 H Plt Count 215 Lymph % (Auto) 51.2 H [place] % (Auto) 12.5 Eos % (Auto) 1.5 Baso % (Auto) 0.5 Absolute Neuts (auto) 2.3 Absolute Lymphs (auto) 3.4 Absolute Monos (auto) 0.8 Absolute Eos (auto) 0.1 Absolute Basos (auto) 0.0 Seg Neutrophils % 34.3 L Sodium 141.7 Potassium 4.3 Chloride 106 Carbon Dioxide 27 Anion Gap 9 BUN 9 Creatinine 0.69 Est GFR ( Amer) > 60 Est GFR (MDRD) Non-Af > 60 Glucose 92 Calcium 9.0 Total Bilirubin 0.2 Direct Bilirubin 0.2 Neonat Total Bilirubin Not Reportable Neonat Direct Bilirubin Not Reportable Neonat Indirect Bili Not Reportable AST 42 ALT 31 Alkaline Phosphatase 97 Troponin I < 0.012 Total Protein 6.6 Albumin 3.6 Urine Color Urine Appearance Urine pH Ur Specific Hatch Urine Protein Urine Glucose (UA) Urine Ketones Urine Blood Urine Nitrite Urine Bilirubin Urine Urobilinogen Ur Leukocyte Esterase Urine WBC (Auto) Urine RBC (Auto) Squamous Epi Cells Auto Urine Ascorbic Acid Salicylates < 1.0 L Urine Opiates Screen Urine Methadone Screen Acetaminophen < 10 L Ur Barbiturates Screen Ur Phencyclidine Scrn Ur Amphetamines Screen U Benzodiazepines Scrn Urine Cocaine Screen U Marijuana (THC) Screen Serum Alcohol 181 05/19/19 05/19/19 22:08 22:08 WBC RBC Hgb Hct MCV MCH MCHC RDW Plt Count Lymph % (Auto) [place] % (Auto) Eos % (Auto) Baso % (Auto) Absolute Neuts (auto) Absolute Lymphs (auto) Absolute Monos (auto) Absolute Eos (auto) Absolute Basos (auto) Seg Neutrophils % Sodium Potassium Chloride Carbon Dioxide Anion Gap BUN Creatinine Est GFR ( Amer) Est GFR (MDRD) Non-Af Glucose Calcium Total Bilirubin Direct Bilirubin Neonat Total Bilirubin Neonat Direct Bilirubin Neonat Indirect Bili AST ALT Alkaline Phosphatase Troponin I Total Protein Albumin Urine Color YELLOW Urine Appearance CLEAR Urine pH 8.0 Ur Specific Hatch 1.012 Urine Protein NEGATIVE Urine Glucose (UA) NEGATIVE Urine Ketones NEGATIVE Urine Blood NEGATIVE Urine Nitrite NEGATIVE Urine Bilirubin NEGATIVE Urine Urobilinogen NEGATIVE Ur Leukocyte Esterase NEGATIVE Urine WBC (Auto) 0 Urine RBC (Auto) 0 Squamous Epi Cells Auto <1 Urine Ascorbic Acid NEGATIVE Salicylates Urine Opiates Screen NEGATIVE Urine Methadone Screen NEGATIVE Acetaminophen Ur Barbiturates Screen NEGATIVE Ur Phencyclidine Scrn NEGATIVE Ur Amphetamines Screen NEGATIVE U Benzodiazepines Scrn UNCONFIRMED POSITIVE Urine Cocaine Screen NEGATIVE U Marijuana (THC) Screen NEGATIVE Serum Alcohol - Diagnostic Test Radiology reviewed: Reports reviewed Discharge - Discharge Clinical Impression: Alcoholism Fall Qualifiers: Encounter type: initial encounter Qualified Code(s): W19.XXXA - Unspecified fall, initial encounter Chronic back pain Qualifiers: Back pain location: low back pain Back pain laterality: unspecified Sciatica presence: unspecified whether sciatica present Qualified Code(s): M54.5 - Low back pain Condition: Stable Disposition: HOME, SELF-CARE Instructions: Chronic Alcoholism ([facility]), Chronic Back Pain ([facility]) Additional Instructions: Return immediately for any new or worsening symptoms Followup with directly with the [facility] facility for detox treatment Follow-up with your primary care provider for further management of your chronic back pain Prescriptions: Cyclobenzaprine HCl [Flexeril 10 Mg Tablet] 10 mg PO TID #15 tablet Lidocaine [Lidoderm 5% (700 mg) Transdermal Patch] 1 patch TP DAILY PRN #10 adh..patch PRN Reason: Naproxen [Naprosyn 250 Nmg Tablet] 1 tab PO BID #14 tablet Referrals: JENA MCCALL FNPRaeC [Primary Care Provider] - Follow up as needed
--- NOTE | 2019-05-19 18:30 | RADIOLOGY REPORT (SQ) ---
EXAM DESCRIPTION: CT LUMBAR SPINE WITHOUT COMPLETED DATE/TIME: 05/19/2019 6:17 pm REASON FOR STUDY: fall, low back pain COMPARISON: None. TECHNIQUE: Axial images acquired through the lumbar spine without intravenous contrast. Images revi ewed with lung, soft tissue and bone windows. Reconstructed coronal and sagittal MPR images reviewed . All images stored on PACS. All CT scanners at this facility use dose modulation, iterative reconstruction, and/or weight based d osing when appropriate to reduce radiation dose to as low as reasonably achievable (ALARA). [facility]: Dose Right [facility]: CareDose [facility]: Dose Right [facility]: Teradose 4D [facility]: [employer] RADIATION DOSE: mGy. LIMITATIONS: None. FINDINGS: SEGMENTATION: Normal. No transitional anatomy. ALIGNMENT: Normal. VERTEBRAL BODIES: No fractures. No dislocation. No acute findings. DISCS: Disc space narrowing. Vacuum change at L5-S1. Probable mild posterior disc bulges. Study li mited by lack of intrathecal contrast. PEDICLES, TRANSVERSE PROCESSES: No fractures. No dislocation. No acute findings. FACETS, POSTERIOR ELEMENTS: No fractures. No dislocation. No spinal stenosis. HARDWARE: None in the spine. VISUALIZED RIBS: No fractures. SOFT TISSUES: No significant or acute finding in adjacent soft tissues. OTHER: No other significant finding. IMPRESSION: MILD DEGENERATIVE DISC DISEASE. NO ACUTE FINDINGS. TECHNICAL DOCUMENTATION: JOB ID: [id number] Quality ID # [id number]: Final reports with documentation of one or more dose reduction techniques (e.g., Au tomated exposure control, adjustment of the mA and/or kV according to patient size, use of iterative reconstruction technique) 2010 [employer]- All Rights Reserved Reading location - IP/workstation name: [email or web address]
--- NOTE | 2019-05-19 18:38 | EKG REPORT ---
SEVERITY:- ABNORMAL ECG - SINUS RHYTHM [Remains] INCOMPLETE RIGHT BUNDLE BRANCH BLOCK [Insig. Chg.] BORDERLINE INFERIOR Q WAVES [Remains] NONSPECIFIC T ABNORMALITIES, LATERAL LEADS [More Prom.] NO SIGNIFICANT CHANGE [Now Absent] LEFT ATRIAL ABNORMALITY : Confirmed by: Magaly Perea MD 19-May-2019 18:37:22
[2019-05-19 19:26] LABS: ABSOLUTE EOSINOPHILS # (AUTO) 0.1 10^3/uL (0.0-0.6); ABSOLUTE LYMPHOCYTES (AUTO) 3.4 10^3/uL (0.5-4.7); ABSOLUTE MONOCYTES (AUTO) 0.8 10^3/uL (0.1-1.4); ABSOLUTE NEUT (AUTO) 2.3 10^3/uL (1.7-8.2); BASOPHILS % (AUTO) 0.5 % (0-2); EOSINOPHILS % (AUTO) 1.5 % (0-6); HEMOGLOBIN 13.1 g/dL (13.5-17.0); LYMPHOCYTES % (AUTO) 51.2 % (13-45); MEAN CORPUSCULAR HEMOGLOBIN 36.1 pg (27.0-33.4); MEAN CORPUSCULAR HGB CONC 34.5 g/dL (32.0-36.0); MEAN CORPUSCULAR VOLUME 105 fl (80-97); MONOCYTES % (AUTO) 12.5 % (3-13); PLATELET COUNT 215 10^3/uL (150-450); RED BLOOD COUNT 3.63 10^6/uL (4.35-5.55); RED CELL DISTRIBUTION WIDTH 18.4 % (11.5-14.0); SEGMENTED NEUTROPHILS % (AUTO) 34.3 % (42-78); TOTAL CELLS COUNTED % (AUTO) 100 %; WHITE BLOOD COUNT 6.6 10^3/uL (4.0-10.5)
[2019-05-19 19:38] LABS: ALBUMIN 3.6 g/dL (3.5-5.0); ALCOHOL 181 mg/dL (NONE DETECTED); ALKALINE PHOSPHATASE 97 U/L (38-126); ANION GAP 9 (5-19); ASPARTATE AMINO TRANSFERASE 42 U/L (17-59); BILIRUBIN,DIRECT 0.2 mg/dL (0.0-0.4); BILIRUBIN,TOTAL 0.2 mg/dL (0.2-1.3); BLOOD UREA NITROGEN 9 mg/dL (7-20); CARBON DIOXIDE 27 mmol/L (22-30); CHLORIDE 106 mmol/L (98-107); GLUCOSE 92 mg/dL (75-110); POTASSIUM 4.3 mmol/L (3.6-5.0); TOTAL PROTEIN 6.6 g/dL (6.3-8.2)
[2019-05-19 19:50] LABS: ACETAMINOPHEN < 10 ug/mL (10-30); SALICYLATE < 1.0 mg/dL (2.0-20.0)
[2019-05-19] MEDS ORDERED: LIDOCAINE 5% (700 MG) TRANSDERMAL ADH..PATCH TP ONE (22:35)
[2019-05-19] MEDS ORDERED: IBUPROFEN 800 MG TABLET PO ONE (22:35)
[2019-05-19 22:36] LABS: APPEARANCE,URINE CLEAR; BILIRUBIN,URINE NEGATIVE (NEGATIVE); COLOR,URINE YELLOW; GLUCOSE, URINE NEGATIVE (NEGATIVE); KETONES,URINE NEGATIVE (NEGATIVE); LEUKOCYTE ESTERASE,URINE NEGATIVE (NEGATIVE); NITRITE,URINE NEGATIVE (NEGATIVE); PROTEIN,URINE NEGATIVE (NEGATIVE); URINE SPECIFIC GRAVITY 1.012; UROBILINOGEN,URINE NEGATIVE mg/dL (<2.0)
[2019-05-19 23:33] LABS: URINE AMPHETAMINES SCREEN NEGATIVE; URINE BARBITURATES SCREEN NEGATIVE; URINE COCAINE SCREEN NEGATIVE; URINE MARIJUANA (THC) SCREEN NEGATIVE; URINE METHADONE SCREEN NEGATIVE; URINE PHENCYCLIDINE SCREEN NEGATIVE
[2019-05-19 23:34] LABS: URINE BENZODIAZEPINES SCREEN UNCONFIRMED POSITIVE
[2019-05-20 01:37] VITALS: BP 126/77
--- NOTE | 2019-05-20 19:43 | EKG REPORT ---
SEVERITY:- ABNORMAL ECG - SINUS RHYTHM CONSIDER RVH W/ SECONDARY REPOL ABNORMALITY ABNORMAL T, CONSIDER ISCHEMIA, LATERAL LEADS : Confirmed by: Magaly Perea MD 20-May-2019 19:43:17
== END 2019-05-20 00:55 | disposition home or self-care (01) ==
LOC: ER 13:49
DX: F10.20 Alcohol dependence, uncomplicated (principal); Z04.3 Encounter for examination and observation following other accident; M54.5 Low back pain; G89.29 Other chronic pain; I10 Essential (primary) hypertension; F17.200 Nicotine dependence, unspecified, uncomplicated; I48.91 Unspecified atrial fibrillation; Z79.01 Long term (current) use of anticoagulants
CPT/HCPCS: 93005; 36415; 80307 ×4; 85025; 80053; 81001; 84484; 72110; 70450; 72131; 93010; J3490; J3411; J7030; J7050; 96365; 99285

== ENCOUNTER 2019-06-06 13:22 | Emergency (ER) | payer SELFPAY ==
[2019-06-06 14:30] VITALS: BP 135/90
[2019-06-06] MEDS ORDERED: OXYCODONE-ACETAMINOPHEN 5-325 MG TABLET PO ONE (14:40)
[2019-06-06] MEDS ORDERED: LIDOCAINE 5% (700 MG) TRANSDERMAL ADH..PATCH TP ONE (14:40)
--- NOTE | 2019-06-06 14:46 | ER Document Report ---
HPI - HPI Patient complains to provider of: Low back pain Time Seen by Provider: 06/06/19 14:31 Pain Level: 2 Notes: 49-year-old male to the emergency department with complaints of persistent low back pain for the past 3 weeks. He states that he had had some prior falls but none recently. He does have an alcohol problem and did go to [place] about 3 weeks ago for alcohol rehab. He states that despite going to rehab he still has continued to drink. He is drinking 324 ounce beers a day. He has not had any today. He also states that he has been using Valium at home he states that there 5 mg that he takes about 3 a day. He also states that a neighbor has been giving him gabapentin but he is unsure of the dose. He states that neither of things are helping him. He has not seen orthopedic this. He was seen here prior to going to [place] on May 19 and in the lumbar CT was performed at that time. He did have some degenerative disc changes and some mild disc bulging but no other gross abnormalities. Patient again vehemently states that he has not had any recent falls. He is not had any bladder or bowel incontinence, saddle paresthesias, fevers or chills, IV drug abuse. He admits to some numbness and tingling down his right buttocks and posterior leg but denies any weakness to the leg. - CONSTITUTIONAL Constitutional: DENIES: Fever, Chills - EENT EENT: DENIES: Ear Pain - NEURO Neurology: DENIES: Headache, Weakness - CARDIOVASCULAR Cardiovascular: DENIES: Chest pain - RESPIRATORY Respiratory: DENIES: Coughing - GASTROINTESTINAL Gastrointestinal: DENIES: Abdominal Pain, Nausea, Patient vomiting, Diarrhea, Constipation - MUSCULOSKELETAL Musculoskeletal: REPORTS: Back Pain Notes: See HPI - DERM Skin Color: Normal Skin Problems: None Past Medical History - General Information source: Patient - Social History Smoking Status: Current Every Day Smoker Chew tobacco use (# tins/day): No Frequency of alcohol use: Heavy Drug Abuse: None Family History: Reviewed & Not Pertinent Patient has suicidal ideation: No Patient has homicidal ideation: No - Past Medical History Cardiac Medical History: Reports: Hx Atrial Fibrillation, Hx Hypertension Renal/ Medical History: Denies: Hx Peritoneal Dialysis Musculoskeletal Medical History: Reports Hx Arthritis - Low back pain Past Surgical History: Reports: Hx Appendectomy, Hx Bowel Surgery - partial removal large intestine, Hx Cardiac Surgery - open heart for "hole in heart" - Immunizations Hx Diphtheria, Pertussis, Tetanus Vaccination: Yes Vertical Provider Document - CONSTITUTIONAL Agree With Documented VS: Yes Exam Limitations: No Limitations General Appearance: WD/WN Notes: Mild pain discomfort. Patient is sitting in chair rubbing his right side of the back. Despite patient's history of alcohol abuse, patient appears clinically sober. - INFECTION CONTROL TRAVEL OUTSIDE OF THE [place] IN LAST 30 DAYS: No - HEENT HEENT: negative: Atraumatic, PERRLA - NECK Neck: Normal Inspection, Supple - RESPIRATORY Respiratory: Breath Sounds Normal. negative: Rales, Rhonchi, Wheezing - CARDIOVASCULAR Cardiovascular: Regular Rate, Regular Rhythm, No Murmur - GI/ABDOMEN Gastrointestinal: Abdomen Soft, Abdomen Non-Tender - BACK Notes: There is mild tenderness to palpation to the midline lumbar spine but most of the tenderness to palpation is actually directly to the right in the lumbosacral region with noted muscle spasm of the right paraspinals. Negative straight leg raise bilaterally. Patient is able to stand and walk in triage. There is no step-off or deformity. - MUSCULOSKELETAL/EXTREMETIES Musculoskeletal/Extremeties: FROM - NEURO Level of Consciousness: Awake, Alert, Appropriate Motor/Sensory: No Motor Deficit, No Sensory Deficit, No Pronator Drift Notes: Cranial nerves II through XII intact. Alert and oriented x4. No pronator drift. No gait ataxia. - DERM Integumentary: Warm, Dry, No Rash Course - Re-evaluation Re-evalutation: 06/06/19 14:45 Impression: Right low back pain with sciatica. He has had recent imaging here in form of a lumbar x-ray and lumbar CT. He does not have emergent symptoms to elicit an emergent MRI. Do think that he needs follow-up with orthopedist and have physical therapy. I have discussed this with the patient and he agrees. We have discussed pain management for him. I will dose him with 1 tablet of Percocet here but will not send home with controlled substances. I have advised him to not drink with Valium or gout gabapentin it is dangerous to do so. I will send him home with Robaxin, Naprosyn, Medrol Dosepak. I offered him Lidoderm patches but he states that his insurance will not pay for them. I will apply one here today and he is agreeable to that. We will discharge home and give him orthopedic follow-up. - Vital Signs Vital signs: Temp Pulse Resp BP Pulse Ox 98.3 F 92 16 135/90 H 96 06/06/19 13:44 06/06/19 13:44 06/06/19 13:44 06/06/19 13:44 06/06/19 13:44 Discharge - Discharge Clinical Impression: Low back pain Qualifiers: Chronicity: acute Back pain laterality: right Sciatica presence: with sciatica Sciatica laterality: sciatica of right side Qualified Code(s): M54.41 - Lumbago with sciatica, right side Condition: Stable Disposition: HOME, SELF-CARE Instructions: Ice Packs ([facility]), Low Back Pain ([facility]) Additional Instructions: Follow-up with orthopedist without fail. Return if any worsening symptoms. Do not drink and take Valium and gabapentin. Take the medicines as prescribed to you. Prescriptions: Methylprednisolone [Medrol Dosepack (4 mg/Tab) 21 Tab/Dosepak] 4 mg PO ASDIR PRN #21 tab.[id number] PRN Reason: Naproxen [Naprosyn 375 Mg Tablet] 375 mg PO BID #20 tablet Methocarbamol [Robaxin 500 mg Tablet] 500 mg PO QID PRN #20 tablet PRN Reason: Referrals: JENA MCCALL FNP-C [Primary Care Provider] - Follow up in 3-5 days CALOS ZAPIEN JR, DO [ACTIVE PROVISIONAL STAFF] - Follow up in 1 week (for orthopedic follow up)
== END 2019-06-06 14:52 | disposition home or self-care (01) ==
LOC: ER 13:22
DX: M54.41 Lumbago with sciatica, right side (principal); F17.200 Nicotine dependence, unspecified, uncomplicated; I10 Essential (primary) hypertension
CPT/HCPCS: 99283